=== PATIENT | female | born 1980 | race Caucasian/White ===

== ENCOUNTER 2018-05-18 11:57 | Outpatient (CLI) | payer OTHER ==
[~2018-05-18] VITALS: Ht 165.1 cm; Wt 110.5 kg
[2018-05-18] MEDS ORDERED: PRENATAL MVI (12:16)
[2018-05-18 12:26] VITALS: BP 126/83; PULSE 107; TEMP 98.3
== END 2018-05-18 12:34 | disposition home or self-care (01) ==
LOC: LDRO 11:57
DX: O99.89 Other specified diseases and conditions complicating pregnancy, childbirth and the puerperium (principal); R51 Headache; R00.2 Palpitations; Z3A.38 38 weeks gestation of pregnancy

== ENCOUNTER 2018-05-25 07:05 | Inpatient (IN) | payer OTHER ==
[2018-05-25] VITALS (38 sets, daily range): BP systolic 105–141; BP diastolic 51–95; PULSE 80–118; TEMP 97.8–99.7
[~2018-05-25] VITALS: Ht 165.1 cm; Wt 111.4 kg
[~2018-05-25 07:05] MED LIST: PRENATAL MVI
[2018-05-25 08:27] LABS: BASO % 0.3 % (0.0-2.0); EOS # 0.2 (0.0-0.7); EOS % 1.7 % (0-4.0); GRAN # 8.7 (1.4-6.5); HEMATOCRIT 40.1 % (37.0-47.0); HEMOGLOBIN 13.4 g/dl (12.5-16.0); LYMPH # 2.2 (1.2-3.4); LYMPH % 18.9 % (20.0-51.0); MEAN CELL VOLUME 87 fl (80.0-100.0); MEAN CORPUSCULAR HEMOGLOBIN 29 pg (27.0-31.0); MEAN CORPUSCULAR HGB CONC 33 g/dl (33.0-37.0); MEAN PLATELET VOLUME 11.9 fl (7.4-10.4); MONO # 0.5 (0.1-0.6); MONO % 4.5 % (1.7-9.3); PLATELET COUNT 265 K/mm3 (130-400); REDCELL DISTRIBUTION WIDTH-CV 13.8 % (11.5-14.5)
[2018-05-26 03:30] VITALS: BP 123/70; PULSE 102; TEMP 98
[2018-05-26 06:28] LABS: HEMATOCRIT 37.5 % (37.0-47.0); HEMOGLOBIN 12.8 g/dl (12.5-16.0)
[2018-05-26 08:00] VITALS: BP 117/83; PULSE 88; TEMP 97.5
[2018-05-26] MEDS ORDERED: IBU600 MG PO (08:59)
[2018-05-26 11:19] VITALS: BP 129/49; PULSE 95; TEMP 98.3
== END 2018-05-26 17:25 | disposition home or self-care (01) | DRG 807 ==
LOC: LDR 07:05 → OB 07:05 → LDR 17:06 → OB 17:35
PROVIDERS: Obstetrics & Gynecology
PROC: 10E0XZZ Delivery of Products of Conception, External Approach (ICD-10-PCS; principal; 2018-05-25)
PROC: 10907ZC Drainage of Amniotic Fluid, Therapeutic from Products of Conception, Via Natural or Artificial Opening (ICD-10-PCS; 2018-05-25)
PROC: 3E033VJ Introduction of Other Hormone into Peripheral Vein, Percutaneous Approach (ICD-10-PCS; 2018-05-25)
DX: O99.214 Obesity complicating childbirth (principal); Z37.0 Single live birth; Z3A.39 39 weeks gestation of pregnancy; O77.0 Labor and delivery complicated by meconium in amniotic fluid
CPT/HCPCS: J2590; J7120